=== PATIENT | female | born 1975 | race Caucasian/White ===

== ENCOUNTER 2017-09-08 19:59 | Emergency (ER) | payer OTHER ==
[~2017-09-08] VITALS: Ht 165.1 cm; Wt 79.5 kg
[2017-09-08] MEDS ORDERED: ALBU8.5H8 IH (20:06)
[2017-09-08] MEDS ORDERED: KETOROLAC TROMETHAMINE 30 MG/ML VIAL IM ONE (20:30)
[2017-09-08] MEDS ORDERED: ALBUTEROL SULFATE 5 MG/ML 20 ML NEB SOLN [BULK] NEB ONE (20:30)
[2017-09-08] MEDS ORDERED: 0.9% SODIUM CHLORIDE 5 ML NEB SOLUTION NEB ONE (20:46)
[2017-09-08 21:32] VITALS: BP 142/86
== END 2017-09-08 21:41 | disposition home or self-care (01) ==
LOC: EMS 20:02
DX: J40 Bronchitis, not specified as acute or chronic (principal); I10 Essential (primary) hypertension; R07.89 Other chest pain
CPT/HCPCS: 71020; 93005; 94640; 96372; 99284; J1885; J7611

== ENCOUNTER 2018-05-19 14:38 | Emergency (ER) | payer OTHER ==
[~2018-05-19] VITALS: Ht 165.1 cm; Wt 81.8 kg
[~2018-05-19 14:38] MED LIST: ALBU8.5H8 IH
[2018-05-19] MEDS ORDERED: IBUPROFEN 800 MG TABLET PO ONE (15:00)
[2018-05-19 16:00] VITALS: BP 136/81
== END 2018-05-19 16:13 | disposition home or self-care (01) ==
LOC: EMS 14:41
DX: S90.122A Contusion of left lesser toe(s) without damage to nail, initial encounter (principal); R03.0 Elevated blood-pressure reading, without diagnosis of hypertension; W22.8XXA Striking against or struck by other objects, initial encounter; Y93.89 Activity, other specified; Y92.89 Other specified places as the place of occurrence of the external cause; Y99.8 Other external cause status
CPT/HCPCS: 99284

== ENCOUNTER 2019-11-10 13:25 | Emergency (ER) | payer OTHER | END 2019-11-10 14:12 | disposition left against medical advice (07) | LOC: EMS 13:26 | DX: Z53.21 Procedure and treatment not carried out due to patient leaving prior to being seen by health care provider (principal) ==

== ENCOUNTER 2020-05-19 07:45 | Emergency (ER) | payer OTHER ==
[~2020-05-19] VITALS: Ht 170.2 cm; Wt 84.1 kg
[2020-05-19] MEDS ORDERED: ACETAMINOPHEN 500 MG TABLET PO ONE (08:15)
[2020-05-19 09:15] VITALS: BP 113/76
[2020-05-19 10:32] LABS: INFLUENZA TYPE A NEGATIVE FOR TYPE A (NEGATIVE); INFLUENZA TYPE B NEGATIVE FOR TYPE B (NEGATIVE)
== END 2020-05-19 09:47 | disposition home or self-care (01) ==
LOC: EMS 07:49
DX: R50.9 Fever, unspecified (principal); J02.9 Acute pharyngitis, unspecified; R09.81 Nasal congestion; R06.02 Shortness of breath; R05 Cough; J45.909 Unspecified asthma, uncomplicated; M79.10 Myalgia, unspecified site; Z20.828 Contact with and (suspected) exposure to other viral communicable diseases
CPT/HCPCS: 87804; 71045-TC